=== PATIENT | male | born 1950 | race Caucasian/White ===

== ENCOUNTER 2016-09-08 10:37 | Observation (INO) | payer OTHER ==
[~2016-09-08] VITALS: Ht 170.2 cm; Wt 90.2 kg
[~2016-09-08 10:37] MED LIST: ALDACTONE25 MG PO; ALPRAZOLAM0.25 M2 PO; ASPIR-LOW81 MG PO; BUSPAR15 MG PO; CELEXA20 MG PO; COREG3.125 M1 PO; CRESTOR40 MG PO; CYMBALTA60 MG PO; DEMADEX20 MG PO; DURAGESIC12 MCG TD; DURAGESIC25 MCG TD; EFFIENT10 MG PO; GLUCOSE GEL15 GM PO; HUMALOG100 UNIT/2 SC; IMODIUM MS REL1 EACH PO; K-DUR10 MEQ PO; K-DUR20 MEQ PO; LASIX40 MG PO; LEVEMIR100 UNIT/2 SC; LEXAPRO20 MG PO; LIPITOR80 MG PO; LISINOPRIL10 MG PO; LISINOPRIL2.5 MG PO; LOFIBRA,TRIGLI160 MG PO; LYRICA150 MG PO; LYRICA200 MG PO; LYRICA300 MG PO; LYRICA75 MG PO; MAG-OXIDE400 MG PO; METFORMIN HCL500 M1 PO; METOLAZONE2.5 MG PO; NITROGLYCERIN0.4 MG SL; NOVOLOG 10100 UNITS/ SC; OXYCODONE HCL10 MG PO; PACERONE400 MG PO; PERCOCET 10/1 TABLET PO; POTASSIUM CHLO20 ME1 PO; PROTONIX40 MG PO; TIZANIDINE HCL4 M1 PO; TORSEMIDE100 MG PO; TORSEMIDE20 MG PO; TRULICITY0.75 MG/0. SC; ZANAFLEX4 MG PO
[2016-09-08 12:30] LABS: CHLORIDE 110 mEq/L (99-109); POTASSIUM 4.3 mEq/L (3.7-5.4); SODIUM 144 mEq/L (136-147)
[2016-09-08 12:32] LABS: GLUCOSE 113 mg/dL (70-99)
[2016-09-08 12:34] LABS: ANION GAP 8 MEQ/L (2-14); TOTAL BILIRUBIN 0.6 mg/dL (0.0-1.0)
[2016-09-08 12:36] LABS: ALKALINE PHOSPHATASE 95 IU/L (3-129); GFR ESTIMATE (CALCULATED) > 59 mL/min/
[2016-09-08 12:37] LABS: UREA NITROGEN (BUN) 19 mg/dL (9-23)
[2016-09-08 12:58] LABS: TROP-I INTERPRETATION NEGATIVE; TROPONIN-I < 0.01 ng/mL (0.0-0.30)
[2016-09-08 13:02] LABS: HEMATOCRIT 35.6 % (38.0-50.0); MCH 23.9 PG (29.0-34.0); MCHC 30.1 G/DL (30.0-36.0); MCV 79.5 FL (86-99); MEAN PLAT.VOLUME 12.9 uM^3 (9.0-12.4); PLATELET COUNT 238 K/uL (156-360); RBC DIS.WIDTH-CV 19.9 % (11.8-14.6); RBC DIS.WIDTH-SD 55.3 % (39-53); RED BLOOD COUNT 4.48 M/uL (4.00-5.50); WHITE BLOOD COUNT 11.8 K/uL (4.1-10.2)
[2016-09-08] MEDS ORDERED: DEMADEX20 MG PO (14:45)
[2016-09-08] MEDS ORDERED: TORSEMIDE100 MG PO (14:45)
[2016-09-08] MEDS ORDERED: LEVEMIR100 UNIT/2 SC ×2 (14:47)
[2016-09-08] MEDS ORDERED: HUMALOG100 UNIT/2 SC (14:49)
[2016-09-08] MEDS ORDERED: DEXILANT60 MG PO (14:50)
[2016-09-08] MEDS ORDERED: PROZAC20 MG PO (14:50)
[2016-09-08] MEDS ORDERED: DURAGESIC50 MCG TD (14:50)
[2016-09-08] MEDS ORDERED: GLUCAGON1 MG IM (14:52)
[2016-09-08] MEDS ORDERED: LIDOCREAM15 GM TP (14:52)
[2016-09-08 17:58] VITALS: BP 132/79
[2016-09-08 18:46] LABS: INFLUENZA A VIRAL ANTIGEN NEGATIVE; INFLUENZA B VIRAL ANTIGEN NEGATIVE
[2016-09-08 19:57] VITALS: BP 133/85
[2016-09-08 21:33] LABS: POINT-OF-CARE METER ID UU13113700
[2016-09-09 00:27] VITALS: BP 113/65
[2016-09-09 00:40] LABS: POINT-OF-CARE METER ID UU13113700
[2016-09-09 05:28] VITALS: BP 108/64
[2016-09-09 05:45] LABS: POINT-OF-CARE METER ID UU13113831
[2016-09-09 06:27] LABS: HEMATOCRIT 36.2 % (38.0-50.0); MCH 23.9 PG (29.0-34.0); MCHC 30.4 G/DL (30.0-36.0); MCV 78.7 FL (86-99); PLATELET COUNT 226 K/uL (156-360); RBC DIS.WIDTH-CV 19.5 % (11.8-14.6); RBC DIS.WIDTH-SD 54.7 % (39-53); WHITE BLOOD COUNT 13.8 K/uL (4.1-10.2)
[2016-09-09 06:50] LABS: ANION GAP 8 MEQ/L (2-14); CHLORIDE 108 MEQ/L (99-109); GFR ESTIMATE (CALCULATED) > 59 mL/min/; GLUCOSE 169 mg/dL (70-99); POTASSIUM 4.2 MEQ/L (3.7-5.4); SAMPLE HEMOLYSIS CHECK 0; SAMPLE ICTERIC CHECK 0; SAMPLE LIPEMIA CHECK 0; SODIUM 144 MEQ/L (136-147); UREA NITROGEN (BUN) 21 mg/dL (9-23)
[2016-09-09 08:10] VITALS: BP 121/73
[2016-09-09 08:51] LABS: D-DIMER ELISA 0.42 mg/L FEU (< 0.57)
[2016-09-09 09:20] LABS: TROP-I INTERPRETATION NEGATIVE; TROPONIN-I < 0.01 ng/mL (0.0-0.30)
[2016-09-09 11:08] VITALS: BP 108/66
[2016-09-09 11:29] LABS: POINT-OF-CARE METER ID UU13113700
[2016-09-09 12:23] LABS: ADD MIUA? NO; BILIRUBIN NEGATIVE; BLOOD NEGATIVE; COLOR STRAW ((YELLOW)); GLUCOSE (STRIP) NEGATIVE; KETONES NEGATIVE; LEUKOCYTES NEGATIVE; NITRITE NEGATIVE; PROTEIN (STRIP) NEGATIVE; SPECIFIC GRAVITY 1.006 (1.000-1.030); UCUL ADDED? NO; UROBILINOGEN 0.2 MG/DL (0.2-1.0)
[2016-09-09] MEDS ORDERED: PREDNISONE10 MG PO (12:47)
[2016-09-09] MEDS ORDERED: AZITHROMYCIN500 M1 PO (12:47)
== END 2016-09-09 14:36 | disposition home health service (06) ==
LOC: EME 10:37 → EDOF 15:11 → 5WEST 15:11
PROVIDERS: Hospitalist; Internal Medicine; Nurse Practitioner Adult Health; Nurse Practitioner Family
DX: J44.1 Chronic obstructive pulmonary disease with (acute) exacerbation (principal); I13.0 Hypertensive heart and chronic kidney disease with heart failure and stage 1 through stage 4 chronic kidney disease, or unspecified chronic kidney disease; I50.22 Chronic systolic (congestive) heart failure; N18.9 Chronic kidney disease, unspecified; D64.9 Anemia, unspecified; I25.10 Atherosclerotic heart disease of native coronary artery without angina pectoris; E11.9 Type 2 diabetes mellitus without complications; I25.5 Ischemic cardiomyopathy; I25.2 Old myocardial infarction; Z95.810 Presence of automatic (implantable) cardiac defibrillator; E78.5 Hyperlipidemia, unspecified; F17.200 Nicotine dependence, unspecified, uncomplicated
CPT/HCPCS: 71020; 80048; 80053; 81003; 82948; 83880; 84484; 85027; 85379; 87502; 93005; 94640; 99281; 99285; G0378; J1815; J7512

== ENCOUNTER 2017-02-22 12:41 | Inpatient (IN) | payer OTHER ==
[~2017-02-22] VITALS: Ht 170.2 cm; Wt 82.7 kg
[~2017-02-22 12:41] MED LIST changes: +ANECREAM30 GM TP; +AZITHROMYCIN500 M1 PO; +DEXILANT60 MG PO; +DURAGESIC50 MCG TD; +GLUCAGON1 MG IM; -MAG-OXIDE400 MG PO; +MAGNESIUM250 M1 PO; +PREDNISONE10 MG PO; +PROZAC20 MG PO; -TRULICITY0.75 MG/0. SC; +TRULICITY1.5 MG/0.5 SC
[2017-02-22 13:17] LABS: MCH 23.2 PG (29.0-34.0); MCHC 30.5 G/DL (30.0-36.0); MCV 76.1 FL (86-99); PLATELET COUNT 273 K/uL (156-360); RBC DIS.WIDTH-CV 20.5 % (11.8-14.6); RBC DIS.WIDTH-SD 54.1 % (39-53); RED BLOOD COUNT 5.52 M/uL (4.00-5.50); WHITE BLOOD COUNT 18.6 K/uL (4.1-10.2)
[2017-02-22 13:22] LABS: INTER. NORMALIZED RATIO 1.4; PROTHROMBIN TIME 15.7 SEC (10.2-12.9)
[2017-02-22 13:25] LABS: PTT 36.3 SEC (25-37)
[2017-02-22 13:28] LABS: CHLORIDE 103 mEq/L (99-109); POTASSIUM 5.1 mEq/L (3.7-5.4); SODIUM 136 mEq/L (136-147)
[2017-02-22 13:29] LABS: BASOPHIL COUNT 0.1 K/uL (0-0.1); EOSINOPHIL (%) 0.3 % (0-5); EOSINOPHIL COUNT 0.1 K/uL (0-0.3); IMMATURE GRANULOCYTE (%) 0.6 % (0.0-0.7); IMMATURE GRANULOCYTE COUNT 0.1 K/uL; INSTRUMENT ABS NEUTROPHIL CT 15.6 K/uL; LYMPHOCYTE COUNT 1.3 K/uL (1.0-2.8); MONOCYTE (%) 7.8 % (3-12); MONOCYTE COUNT 1.5 K/uL (0-0.8); NEUTROPHIL COUNT 15.6 K/uL (1.8-6.4)
[2017-02-22 13:30] LABS: GLUCOSE 160 mg/dL (70-99)
[2017-02-22 13:31] LABS: ANION GAP 13 MEQ/L (2-14)
[2017-02-22 13:34] LABS: GFR ESTIMATE (CALCULATED) 43 mL/min/; UREA NITROGEN (BUN) 33 mg/dL (9-23)
[2017-02-22 13:38] LABS: TROP-I INTERPRETATION NEGATIVE; TROPONIN-I 0.03 ng/mL (0.0-0.30)
[2017-02-22 13:45] LABS: BASE EXCESS -0.6 mEq/L (-3 to +3); BICARBONATE 24.9 mEq/L (22-26); CARBOXY HGB 3.2 % (0-5); METHEMOGLOBIN 0.8 % (0-1.5); PCO2 43 mm Hg (35-45); PO2 62 mm Hg (80-100); SITE LR; pH 7.37 (7.35-7.45)
[2017-02-22 13:46] LABS: COMMENTS - BLOOD GASES A+C+; DEVICE VM; O2 FLOW 12 L/MIN; TOTAL RESP RATE 22 resp/min
[2017-02-22] MEDS ORDERED: LYRICA200 MG PO (15:29)
[2017-02-22] MEDS ORDERED: ENTRESTO 24 MG1 EACH PO (15:39)
[2017-02-22] MEDS ORDERED: PANTOPRAZOLE SO40 MG PO (15:40)
[2017-02-22] MEDS ORDERED: QVAR 80 MCG IN7.3 GM IH (15:42)
[2017-02-22] MEDS ORDERED: GLUCOPHAGE XR750 MG PO (15:42)
[2017-02-22] MEDS ORDERED: ANORO ELLIPTA1 EACH IH (15:43)
[2017-02-22] MEDS ORDERED: VITAMIN D2000 UNI1 PO (15:44)
[2017-02-22 17:52] VITALS: BP 167/74
[2017-02-22 19:15] VITALS: BP 109/58
[2017-02-22 23:44] LABS: ADD MIUA? NO; BILIRUBIN NEGATIVE; BLOOD NEGATIVE; COLOR YELLOW ((YELLOW)); GLUCOSE (STRIP) NEGATIVE; KETONES NEGATIVE; LEUKOCYTES NEGATIVE; NITRITE NEGATIVE; PROTEIN (STRIP) NEGATIVE; SPECIFIC GRAVITY 1.012 (1.000-1.030); UCUL ADDED? NO; UROBILINOGEN 0.2 MG/DL (0.2-1.0)
[2017-02-23] VITALS: BP 112/68
[2017-02-23 03:06] VITALS: BP 114/58
[2017-02-23 05:14] LABS: HEMATOCRIT 38.6 % (38.0-50.0); MCH 23.2 PG (29.0-34.0); MCHC 30.8 G/DL (30.0-36.0); MCV 75.1 FL (86-99); PLATELET COUNT 218 K/uL (156-360); RBC DIS.WIDTH-SD 53.2 % (39-53); RED BLOOD COUNT 5.14 M/uL (4.00-5.50)
[2017-02-23 05:40] LABS: ANION GAP 13 MEQ/L (2-14); CHLORIDE 102 MEQ/L (99-109); GFR ESTIMATE (CALCULATED) 43 mL/min/; GLUCOSE 232 mg/dL (70-99); SAMPLE HEMOLYSIS CHECK 0; SAMPLE ICTERIC CHECK 0; SAMPLE LIPEMIA CHECK 0; SODIUM 138 MEQ/L (136-147); UREA NITROGEN (BUN) 44 mg/dL (9-23)
[2017-02-23 08:08] VITALS: BP 108/64
[2017-02-23 08:44] LABS: POINT-OF-CARE METER ID UU13113698
[2017-02-23 09:04] LABS: TROP-I INTERPRETATION NEGATIVE; TROPONIN-I 0.14 ng/mL (0.0-0.30)
[2017-02-23 11:12] LABS: POINT-OF-CARE METER ID UU13113698
[2017-02-23 11:55] VITALS: BP 94/55
[2017-02-23 16:15] VITALS: BP 105/65
[2017-02-23 17:27] LABS: TROP-I INTERPRETATION NEGATIVE; TROPONIN-I 0.07 ng/mL (0.0-0.30)
[2017-02-23 21:25] VITALS: BP 98/56
[2017-02-24 05:26] VITALS: BP 108/59
[2017-02-24 05:37] LABS: ANION GAP 11 MEQ/L (2-14); CHLORIDE 101 MEQ/L (99-109); GFR ESTIMATE (CALCULATED) 54 mL/min/; GLUCOSE 160 mg/dL (70-99); SAMPLE HEMOLYSIS CHECK 0; SAMPLE ICTERIC CHECK 0; SAMPLE LIPEMIA CHECK 0; SODIUM 139 MEQ/L (136-147); UREA NITROGEN (BUN) 52 mg/dL (9-23)
[2017-02-24 05:42] LABS: TROP-I INTERPRETATION NEGATIVE; TROPONIN-I 0.05 ng/mL (0.0-0.30)
[2017-02-24 07:35] LABS: POINT-OF-CARE METER ID UU13113781
[2017-02-24 08:00] VITALS: BP 112/66
[2017-02-24 11:02] LABS: POINT-OF-CARE METER ID UU13113781
[2017-02-24 16:21] LABS: POINT-OF-CARE METER ID UU13113698
[2017-02-24 19:05] VITALS: BP 101/60
[2017-02-24 21:09] LABS: POINT-OF-CARE METER ID UU13113781
[2017-02-24 21:14] VITALS: BP 108/61
[2017-02-24 23:17] VITALS: BP 109/61
[2017-02-25] VITALS (7 sets, daily range): BP systolic 81–107; BP diastolic 51–91
[2017-02-25 07:38] LABS: POINT-OF-CARE METER ID UU13113698
[2017-02-25 08:26] LABS: POINT-OF-CARE METER ID UU13113698
[2017-02-25 08:59] LABS: EOSINOPHIL (%) 0.5 % (0-5); EOSINOPHIL COUNT 0.1 K/uL (0-0.3); HEMATOCRIT 37.3 % (38.0-50.0); IMMATURE GRANULOCYTE (%) 0.8 % (0.0-0.7); IMMATURE GRANULOCYTE COUNT 0.1 K/uL; INSTRUMENT ABS NEUTROPHIL CT 13.6 K/uL; MCH 23.2 PG (29.0-34.0); MCHC 30.8 G/DL (30.0-36.0); MCV 75.4 FL (86-99); MONOCYTE COUNT 1.7 K/uL (0-0.8); NEUTROPHIL (%) 82.3 % (45-76); NEUTROPHIL COUNT 13.6 K/uL (1.8-6.4); PLATELET COUNT 206 K/uL (156-360); RBC DIS.WIDTH-CV 20.6 % (11.8-14.6); RBC DIS.WIDTH-SD 53.5 % (39-53); RED BLOOD COUNT 4.95 M/uL (4.00-5.50); WHITE BLOOD COUNT 16.6 K/uL (4.1-10.2)
[2017-02-25 09:43] LABS: ANION GAP 9 MEQ/L (2-14); CHLORIDE 102 MEQ/L (99-109); GFR ESTIMATE (CALCULATED) 59 mL/min/; POTASSIUM 4.6 MEQ/L (3.7-5.4); SAMPLE HEMOLYSIS CHECK 0; SAMPLE ICTERIC CHECK 0; SAMPLE LIPEMIA CHECK 0; SODIUM 140 MEQ/L (136-147); UREA NITROGEN (BUN) 44 mg/dL (9-23)
[2017-02-25 09:46] LABS: GLUCOSE 107 mg/dL (70-99)
[2017-02-25 11:13] LABS: POINT-OF-CARE METER ID UU13113698
[2017-02-25 16:03] LABS: POINT-OF-CARE METER ID UU13113698
[2017-02-25 21:18] LABS: POINT-OF-CARE METER ID UU13113781
[2017-02-26 04:22] VITALS: BP 112/59
[2017-02-26 04:47] LABS: POINT-OF-CARE METER ID UU13113781
[2017-02-26 06:26] LABS: ANION GAP 12 MEQ/L (2-14); CHLORIDE 101 MEQ/L (99-109); GFR ESTIMATE (CALCULATED) 59 mL/min/; GLUCOSE 107 mg/dL (70-99); POTASSIUM 3.8 MEQ/L (3.7-5.4); SAMPLE HEMOLYSIS CHECK 0; SAMPLE ICTERIC CHECK 0; SAMPLE LIPEMIA CHECK 0; SODIUM 139 MEQ/L (136-147); UREA NITROGEN (BUN) 40 mg/dL (9-23)
[2017-02-26 08:09] VITALS: BP 110/69
[2017-02-26 09:25] LABS: EOSINOPHIL (%) 1.2 % (0-5); EOSINOPHIL COUNT 0.2 K/uL (0-0.3); IMMATURE GRANULOCYTE (%) 0.6 % (0.0-0.7); IMMATURE GRANULOCYTE COUNT 0.1 K/uL; INSTRUMENT ABS NEUTROPHIL CT 15.7 K/uL; LYMPHOCYTE COUNT 1.3 K/uL (1.0-2.8); MCH 24.3 PG (29.0-34.0); MCHC 32.1 G/DL (30.0-36.0); MCV 75.5 FL (86-99); MONOCYTE COUNT 1.9 K/uL (0-0.8); NEUTROPHIL (%) 81.3 % (45-76); NEUTROPHIL COUNT 15.7 K/uL (1.8-6.4); PLATELET COUNT 226 K/uL (156-360); RED BLOOD COUNT 5.03 M/uL (4.00-5.50); WHITE BLOOD COUNT 19.3 K/uL (4.1-10.2)
[2017-02-26 09:52] LABS: ANION GAP 19 MEQ/L (2-14); CHLORIDE 102 MEQ/L (99-109); GFR ESTIMATE (CALCULATED) 59 mL/min/; POTASSIUM 4.4 MEQ/L (3.7-5.4); SAMPLE HEMOLYSIS CHECK 0; SAMPLE ICTERIC CHECK 0; SAMPLE LIPEMIA CHECK 0; SODIUM 143 MEQ/L (136-147); UREA NITROGEN (BUN) 36 mg/dL (9-23)
[2017-02-26 09:55] LABS: GLUCOSE 165 mg/dL (70-99)
[2017-02-26 11:45] VITALS: BP 101/55
[2017-02-26 16:12] VITALS: BP 89/53
[2017-02-26 19:32] VITALS: BP 104/63
[2017-02-26 23:59] VITALS: BP 97/59
[2017-02-27 03:21] VITALS: BP 88/60
[2017-02-27 06:01] LABS: EOSINOPHIL (%) 1.6 % (0-5); EOSINOPHIL COUNT 0.3 K/uL (0-0.3); HEMATOCRIT 34.7 % (38.0-50.0); IMMATURE GRANULOCYTE (%) 0.4 % (0.0-0.7); IMMATURE GRANULOCYTE COUNT 0.1 K/uL; INSTRUMENT ABS NEUTROPHIL CT 14.9 K/uL; LYMPHOCYTE COUNT 0.9 K/uL (1.0-2.8); MCHC 31.1 G/DL (30.0-36.0); MCV 73.8 FL (86-99); MONOCYTE (%) 10.4 % (3-12); MONOCYTE COUNT 1.9 K/uL (0-0.8); NEUTROPHIL (%) 82.4 % (45-76); NEUTROPHIL COUNT 14.9 K/uL (1.8-6.4); PLATELET COUNT 208 K/uL (156-360); RBC DIS.WIDTH-CV 20.3 % (11.8-14.6); RBC DIS.WIDTH-SD 53.2 % (39-53); WHITE BLOOD COUNT 18.1 K/uL (4.1-10.2)
[2017-02-27 07:31] LABS: INTERNAL CONTROL VALID? YES
[2017-02-27 07:58] VITALS: BP 99/55
[2017-02-27 08:56] LABS: POINT-OF-CARE METER ID UU14174216; POINT-OF-CARE USER ID ENVKC36
[2017-02-27 08:59] LABS: GLUCOSE 123 mg/dL (70-99)
[2017-02-27 11:15] VITALS: BP 88/51
[2017-02-27 11:21] LABS: POINT-OF-CARE METER ID UU13113698; POINT-OF-CARE USER ID ENVKC36
[2017-02-27 11:55] LABS: POINT-OF-CARE METER ID UU13113698; POINT-OF-CARE USER ID ENVKC36
[2017-02-27 15:17] VITALS: BP 99/59
[2017-02-27 16:33] LABS: POINT-OF-CARE METER ID UU13113698
[2017-02-27 20:00] VITALS: BP 87/50
[2017-02-27 21:20] LABS: POINT-OF-CARE METER ID UU13113781
[2017-02-27 23:55] VITALS: BP 88/53
[2017-02-28 04:00] VITALS: BP 91/57
[2017-02-28 07:10] VITALS: BP 97/59
[2017-02-28 08:05] LABS: POINT-OF-CARE METER ID UU13113781; POINT-OF-CARE USER ID ENVKC36
[2017-02-28 08:52] LABS: GLUCOSE 82 mg/dL (70-99)
[2017-02-28 09:16] LABS: EOSINOPHIL (%) 4.2 % (0-5); EOSINOPHIL COUNT 0.7 K/uL (0-0.3); HEMATOCRIT 36.3 % (38.0-50.0); IMMATURE GRANULOCYTE (%) 0.5 % (0.0-0.7); IMMATURE GRANULOCYTE COUNT 0.1 K/uL; INSTRUMENT ABS NEUTROPHIL CT 12.4 K/uL; LYMPHOCYTE COUNT 1.2 K/uL (1.0-2.8); MCH 23.3 PG (29.0-34.0); MCHC 30.9 G/DL (30.0-36.0); MCV 75.5 FL (86-99); MONOCYTE (%) 8.3 % (3-12); MONOCYTE COUNT 1.3 K/uL (0-0.8); NEUTROPHIL (%) 79.3 % (45-76); NEUTROPHIL COUNT 12.4 K/uL (1.8-6.4); PLATELET COUNT 201 K/uL (156-360); RBC DIS.WIDTH-CV 20.6 % (11.8-14.6); RBC DIS.WIDTH-SD 54.8 % (39-53); RED BLOOD COUNT 4.81 M/uL (4.00-5.50); WHITE BLOOD COUNT 15.6 K/uL (4.1-10.2)
[2017-02-28 09:39] LABS: ANION GAP 13 MEQ/L (2-14); CHLORIDE 105 MEQ/L (99-109); GFR ESTIMATE (CALCULATED) 50 mL/min/; GLUCOSE 121 mg/dL (70-99); POTASSIUM 4.2 MEQ/L (3.7-5.4); SAMPLE HEMOLYSIS CHECK 0; SAMPLE ICTERIC CHECK 0; SAMPLE LIPEMIA CHECK 0; SODIUM 144 MEQ/L (136-147); UREA NITROGEN (BUN) 37 mg/dL (9-23)
[2017-02-28 09:58] LABS: POINT-OF-CARE USER ID ENVKC36
[2017-02-28 11:41] LABS: POINT-OF-CARE METER ID UU14174216; POINT-OF-CARE USER ID ENVKC36
[2017-02-28 12:00] VITALS: BP 80/53; BP 87/53
[2017-02-28 16:28] VITALS: BP 104/58
[2017-02-28 16:42] LABS: POINT-OF-CARE METER ID UU13113781; POINT-OF-CARE USER ID ENVKC36
[2017-02-28 20:00] VITALS: BP 55/51
[2017-02-28 21:00] VITALS: BP 137/69
[2017-02-28 21:30] LABS: POINT-OF-CARE METER ID UU13113698
[2017-03-01 00:06] VITALS: BP 98/56
[2017-03-01 04:35] VITALS: BP 110/62
[2017-03-01 07:51] LABS: ANION GAP 11 MEQ/L (2-14); CHLORIDE 107 MEQ/L (99-109); GFR ESTIMATE (CALCULATED) 50 mL/min/; POTASSIUM 4.2 MEQ/L (3.7-5.4); SAMPLE HEMOLYSIS CHECK 0; SAMPLE ICTERIC CHECK 0; SAMPLE LIPEMIA CHECK 0; SODIUM 144 MEQ/L (136-147); UREA NITROGEN (BUN) 36 mg/dL (9-23)
[2017-03-01 07:52] LABS: GLUCOSE 90 mg/dL (70-99)
[2017-03-01 08:00] VITALS: BP 111/71
[2017-03-01 08:02] LABS: POINT-OF-CARE METER ID UU13113698; POINT-OF-CARE USER ID NUTSLF44
[2017-03-01 08:02] LABS: BASOPHIL COUNT 0.1 K/uL (0-0.1); EOSINOPHIL (%) 4.4 % (0-5); EOSINOPHIL COUNT 0.6 K/uL (0-0.3); HEMATOCRIT 32.9 % (38.0-50.0); IMMATURE GRANULOCYTE (%) 0.4 % (0.0-0.7); IMMATURE GRANULOCYTE COUNT 0.1 K/uL; LYMPHOCYTE COUNT 1.3 K/uL (1.0-2.8); MCH 23.7 PG (29.0-34.0); MCHC 31.9 G/DL (30.0-36.0); MCV 74.3 FL (86-99); MEAN PLAT.VOLUME 12.1 uM^3 (9.0-12.4); MONOCYTE (%) 8.1 % (3-12); MONOCYTE COUNT 1.2 K/uL (0-0.8); NEUTROPHIL (%) 77.5 % (45-76); PLATELET COUNT 234 K/uL (156-360); RBC DIS.WIDTH-CV 20.4 % (11.8-14.6); RBC DIS.WIDTH-SD 53.3 % (39-53); RED BLOOD COUNT 4.43 M/uL (4.00-5.50); WHITE BLOOD COUNT 14.2 K/uL (4.1-10.2)
[2017-03-01 11:39] VITALS: BP 101/69
[2017-03-01] MEDS ORDERED: LYRICA75 MG PO (12:17)
[2017-03-01] MEDS ORDERED: AUGMENTIN875 MG PO (12:17)
[2017-03-01] MEDS ORDERED: LEVAQUIN500 MG PO (12:21)
[2017-03-01] MEDS ORDERED: ENTRESTO 24 MG1 EACH PO (12:21)
[2017-03-01 12:28] LABS: POINT-OF-CARE USER ID NUTSLF44
== END 2017-03-01 13:00 | disposition home health service (06) | DRG 291 ==
LOC: EME → EDBD 12:41 → EME 12:41 → 4EAST 15:23 → EDOF 15:23 → ENRESERV 15:25 → 4EAST 17:43
PROVIDERS: Emergency Medicine; Internal Medicine; Internal Medicine Infectious Disease; Physician Assistant Medical
DX: I13.0 Hypertensive heart and chronic kidney disease with heart failure and stage 1 through stage 4 chronic kidney disease, or unspecified chronic kidney disease (principal); I50.23 Acute on chronic systolic (congestive) heart failure; J96.01 Acute respiratory failure with hypoxia; J15.9 Unspecified bacterial pneumonia; J44.0 Chronic obstructive pulmonary disease with (acute) lower respiratory infection; J44.1 Chronic obstructive pulmonary disease with (acute) exacerbation; I35.0 Nonrheumatic aortic (valve) stenosis; I25.10 Atherosclerotic heart disease of native coronary artery without angina pectoris; I48.2 Chronic atrial fibrillation; K21.9 Gastro-esophageal reflux disease without esophagitis; N18.3 Chronic kidney disease, stage 3 (moderate); I25.5 Ischemic cardiomyopathy; E11.22 Type 2 diabetes mellitus with diabetic chronic kidney disease; E11.649 Type 2 diabetes mellitus with hypoglycemia without coma; E78.5 Hyperlipidemia, unspecified; F17.210 Nicotine dependence, cigarettes, uncomplicated; R00.1 Bradycardia, unspecified; G47.30 Sleep apnea, unspecified; T42.6X5A Adverse effect of other antiepileptic and sedative-hypnotic drugs, initial encounter; G25.3 Myoclonus; T40.4X5A Adverse effect of other synthetic narcotics, initial encounter; D64.9 Anemia, unspecified; Z95.1 Presence of aortocoronary bypass graft; Z95.5 Presence of coronary angioplasty implant and graft; I25.2 Old myocardial infarction; Z99.81 Dependence on supplemental oxygen; Z86.79 Personal history of other diseases of the circulatory system; Z82.49 Family history of ischemic heart disease and other diseases of the circulatory system; Z79.4 Long term (current) use of insulin; Z79.84 Long term (current) use of oral hypoglycemic drugs
CPT/HCPCS: 36600; 71010; 71020; 71250; 80048; 80048 91; 81003; 82803; 82948; 83880; 84484; 84999; 85025; 85027; 85610; 85730; 87040; 87449; 93005; 93306; 94640; 94640 76; 94760; 94799; 99202; 99281; 99285; J0696; J1100; J1644; J1815; J1940; J2543; J7050; J7644

== ENCOUNTER 2017-07-01 01:58 | Emergency (ER) | payer OTHER ==
[~2017-07-01] VITALS: Ht 170.2 cm; Wt 81.9 kg
[~2017-07-01 01:58] MED LIST changes: +ANORO ELLIPTA1 EACH IH; +AUGMENTIN875 MG PO; +ENTRESTO 24 MG1 EACH PO; +GLUCOPHAGE XR750 MG PO; +LEVAQUIN500 MG PO; +PANTOPRAZOLE SO40 MG PO; +QVAR 80 MCG IN7.3 GM IH; +VITAMIN D2000 UNI1 PO
[2017-07-01 02:22] LABS: HEMATOCRIT 38.3 % (38.0-50.0); MCHC 31.3 G/DL (30.0-36.0); MCV 76.8 FL (86-99); PLATELET COUNT 202 K/uL (156-360); RBC DIS.WIDTH-CV 19.9 % (11.8-14.6); RBC DIS.WIDTH-SD 53.1 % (39-53); RED BLOOD COUNT 4.99 M/uL (4.00-5.50); WHITE BLOOD COUNT 11.3 K/uL (4.1-10.2)
[2017-07-01 02:42] LABS: TROP-I INTERPRETATION NEGATIVE; TROPONIN-I 0.02 ng/mL (0.0-0.30)
[2017-07-01 02:47] LABS: CHLORIDE 101 mEq/L (99-109); POTASSIUM 4.2 mEq/L (3.7-5.4); SODIUM 137 mEq/L (136-147)
[2017-07-01 02:48] LABS: GLUCOSE 162 mg/dL (70-99)
[2017-07-01 02:52] LABS: CREATININE 1.3 mg/dL (0.6-1.3); GFR ESTIMATE (CALCULATED) 59 mL/min/ (58.99-99999)
[2017-07-01 02:53] LABS: UREA NITROGEN (BUN) 32 mg/dL (9-23)
[2017-07-01] MEDS ORDERED: ZITHROMAX Z-PA250 MG PO (04:26)
[2017-07-01 05:36] VITALS: BP 119/89
== END 2017-07-01 05:38 | disposition home or self-care (01) ==
LOC: EME 01:58
PROVIDERS: Emergency Medicine
DX: J44.1 Chronic obstructive pulmonary disease with (acute) exacerbation (principal); J44.0 Chronic obstructive pulmonary disease with (acute) lower respiratory infection; J20.9 Acute bronchitis, unspecified; F17.200 Nicotine dependence, unspecified, uncomplicated; I25.10 Atherosclerotic heart disease of native coronary artery without angina pectoris; I06.0 Rheumatic aortic stenosis; I11.0 Hypertensive heart disease with heart failure; I50.9 Heart failure, unspecified; E11.9 Type 2 diabetes mellitus without complications; E78.5 Hyperlipidemia, unspecified; K21.9 Gastro-esophageal reflux disease without esophagitis; F41.9 Anxiety disorder, unspecified; F32.9 Major depressive disorder, single episode, unspecified; I25.2 Old myocardial infarction; Z79.84 Long term (current) use of oral hypoglycemic drugs; Z79.82 Long term (current) use of aspirin; Z79.02 Long term (current) use of antithrombotics/antiplatelets; Z98.61 Coronary angioplasty status; Z95.1 Presence of aortocoronary bypass graft; Z95.810 Presence of automatic (implantable) cardiac defibrillator; Z86.74 Personal history of sudden cardiac arrest; Z88.8 Allergy status to other drugs, medicaments and biological substances
CPT/HCPCS: 71046; 80048; 84484; 85027; 87502; 93005; 94640; 99281; 99284

== ENCOUNTER 2017-12-30 14:52 | Observation (INO) | payer OTHER ==
[~2017-12-30] VITALS: Ht 172.7 cm; Wt 83.8 kg
[~2017-12-30 14:52] MED LIST changes: +ZITHROMAX Z-PA250 MG PO
[2017-12-30 15:28] LABS: HEMATOCRIT 32.9 % (38.0-50.0); HEMOGLOBIN 10.7 G/DL (12.5-16.6); MCH 24.8 PG (29.0-34.0); MCHC 32.5 G/DL (30.0-36.0); MCV 76.3 FL (86-99); PLATELET COUNT 232 K/uL (156-360); RBC DIS.WIDTH-CV 18.6 % (11.8-14.6); RBC DIS.WIDTH-SD 50.7 % (39-53); RED BLOOD COUNT 4.31 M/uL (4.00-5.50)
[2017-12-30 15:49] LABS: TROP-I INTERPRETATION NEGATIVE; TROPONIN-I < 0.01 ng/mL (0.0-0.30)
[2017-12-30 16:06] LABS: CHLORIDE 106 mEq/L (99-109); POTASSIUM 4.1 mEq/L (3.7-5.4); SODIUM 142 mEq/L (136-147)
[2017-12-30 16:08] LABS: GLUCOSE 98 mg/dL (70-99)
[2017-12-30 16:12] LABS: GFR ESTIMATE (CALCULATED) 36 mL/min/ (58.99-99999)
[2017-12-30 16:13] LABS: UREA NITROGEN (BUN) 47 mg/dL (9-23)
[2017-12-30] MEDS ORDERED: LYRICA75 MG PO (16:20)
[2017-12-30] MEDS ORDERED: TRULICITY1.5 MG/0.5 SC (16:23)
[2017-12-30] MEDS ORDERED: ZESTRIL2.5 MG PO (16:23)
[2017-12-30] MEDS ORDERED: NITROGLYCERIN0.4 MG SL (16:24)
[2017-12-30] MEDS ORDERED: METOLAZONE2.5 MG PO (16:25)
[2017-12-30] MEDS ORDERED: HUMALOG JU100 UNIT/1 SC (16:26)
[2017-12-30] MEDS ORDERED: DEXILANT60 MG PO (16:27)
[2017-12-30] MEDS ORDERED: [UNRECOGNIZED DRUG - OTHER] (16:30)
[2017-12-30 16:40] LABS: INTER. NORMALIZED RATIO 1.8
[2017-12-30 16:42] LABS: PTT 34.1 SEC (25-37)
[2017-12-30 16:54] LABS: ALBUMIN 3.7 g/dL (3.2-4.8)
[2017-12-30 16:56] LABS: TOTAL PROTEIN 6.7 g/dL (6.4-8.3)
[2017-12-30 16:58] LABS: TOTAL BILIRUBIN 0.6 mg/dL (0.0-1.0)
[2017-12-30 16:59] LABS: ALKALINE PHOSPHATASE 111 IU/L (3-129)
[2017-12-30 17:02] LABS: ALT (GPT) 11 IU/L (3-49); AST (GOT) 26 IU/L (2-34); DIRECT BILIRUBIN 0.4 mg/dL (0.0-0.3)
[2017-12-30 17:03] LABS: LIPASE 18 U/L (1.0-51.0)
[2017-12-30 21:14] VITALS: BP 111/59
[2017-12-30 21:53] LABS: MAGNESIUM 2.2 mg/dl (1.3-2.7); PHOSPHORUS 3.7 mg/dL (2.5-4.9)
[2017-12-31 00:13] VITALS: BP 99/57
[2017-12-31 03:37] LABS: APPEARANCE CLEAR ((CLEAR)); BILIRUBIN NEGATIVE; BLOOD NEGATIVE; COLOR STRAW ((YELLOW)); GLUCOSE (STRIP) NEGATIVE; KETONES NEGATIVE; LEUKOCYTES NEGATIVE; NITRITE NEGATIVE; PROTEIN (STRIP) NEGATIVE; UCUL ADDED? NO; UROBILINOGEN 0.2 MG/DL (0.2-1.0)
[2017-12-31 05:19] VITALS: BP 104/62
[2017-12-31 05:54] LABS: HEMATOCRIT 32.7 % (38.0-50.0); HEMOGLOBIN 10.3 G/DL (12.5-16.6); MCH 24.3 PG (29.0-34.0); MCHC 31.5 G/DL (30.0-36.0); MCV 77.1 FL (86-99); PLATELET COUNT 220 K/uL (156-360); RBC DIS.WIDTH-CV 18.6 % (11.8-14.6); RBC DIS.WIDTH-SD 51.6 % (39-53); RED BLOOD COUNT 4.24 M/uL (4.00-5.50); WHITE BLOOD COUNT 10.6 K/uL (4.1-10.2)
[2017-12-31 06:15] LABS: CHLORIDE 105 MEQ/L (99-109); CREATININE 1.7 MG/DL (0.6-1.3); GFR ESTIMATE (CALCULATED) 43 mL/min/ (58.99-99999); POTASSIUM 3.4 MEQ/L (3.7-5.4); SODIUM 143 MEQ/L (136-147); UREA NITROGEN (BUN) 45 mg/dL (9-23)
[2017-12-31 06:28] LABS: GLUCOSE 61 mg/dL (70-99)
[2017-12-31 07:49] VITALS: BP 91/51
[2017-12-31 09:52] LABS: TROP-I INTERPRETATION NEGATIVE; TROPONIN-I 0.01 ng/mL (0.0-0.30)
[2017-12-31 11:50] VITALS: BP 91/57
[2017-12-31 14:55] LABS: TROP-I INTERPRETATION NEGATIVE; TROPONIN-I < 0.01 ng/mL (0.0-0.30)
== END 2017-12-31 15:24 | disposition home or self-care (01) ==
LOC: EME 14:52 → EDOF 19:53 → 4SOUTH 19:53 → ENRESERV 20:06 → 4SOUTH 20:57
PROVIDERS: Emergency Medicine; Hospitalist
DX: I13.0 Hypertensive heart and chronic kidney disease with heart failure and stage 1 through stage 4 chronic kidney disease, or unspecified chronic kidney disease (principal); I50.23 Acute on chronic systolic (congestive) heart failure; I25.5 Ischemic cardiomyopathy; I42.0 Dilated cardiomyopathy; I25.10 Atherosclerotic heart disease of native coronary artery without angina pectoris; Z95.1 Presence of aortocoronary bypass graft; Z95.5 Presence of coronary angioplasty implant and graft; R94.31 Abnormal electrocardiogram [ECG] [EKG]; Z95.810 Presence of automatic (implantable) cardiac defibrillator; E78.5 Hyperlipidemia, unspecified; E11.22 Type 2 diabetes mellitus with diabetic chronic kidney disease; N18.9 Chronic kidney disease, unspecified; I48.91 Unspecified atrial fibrillation; J44.9 Chronic obstructive pulmonary disease, unspecified; I35.0 Nonrheumatic aortic (valve) stenosis; Z82.49 Family history of ischemic heart disease and other diseases of the circulatory system; Z96.653 Presence of artificial knee joint, bilateral; F17.210 Nicotine dependence, cigarettes, uncomplicated; Z79.4 Long term (current) use of insulin; Z79.82 Long term (current) use of aspirin; I25.2 Old myocardial infarction; Z86.74 Personal history of sudden cardiac arrest; Z91.11 Patient's noncompliance with dietary regimen
CPT/HCPCS: 71046; 80048; 80076; 81003; 82948; 83690; 83735; 83880; 84100; 84484; 85027; 85610; 85730; 93005; 99281; 99285; G0378; J1940